=== PATIENT | male | born 1985 | race Caucasian/White ===

== ENCOUNTER 2017-12-01 12:02 | Emergency (ER) | payer OTHER ==
[2017-12-01 14:52] VITALS: BP 131/83
--- NOTE | 2017-12-01 15:07 | UC ---
FLU HPI - HPI Summary HPI Summary: 32 y/o female present to the urgent care c/o naal congestion, with green nasal discharge, TIRADO, productive cough, +PND for the past 2 weeks. Pt reports symptoms started w/ common cold symptoms. He has been taking Tylenol cold and flu OTC to alleviate symptoms. He had fever this morning. Pt denies chest pain, wheezing, [id number] pain, N/V/D - History of Current Complaint Chief Complaint: UCRespiratory Stated Complaint: FLU SYMPTOMS/RESPIRATORY Time Seen by Provider: 12/01/17 14:37 Hx Obtained From: Patient Onset/Duration: Gradual Onset, Lasting Weeks - 2 weeks, Worse Since - 2 days Severity Currently: Mild Severity Initially: Moderate Pain Intensity: 4 Pain Scale Used: 0-10 Numeric Associated Signs & Symptoms: Positive: Fever, Myalgia, Nasal Congestion, Headache - Risk Factors Influenza Risk Factors: Negative - Allergy/Home Medications Allergies/Adverse Reactions: Allergies Allergy/AdvReac Type Severity Reaction Status Date / Time No Known Allergies Allergy Verified 12/01/17 14:38 Home Medications: Home Medications Ibuprofen TAB* [Motrin TAB* 400 MG] 400 mg PO ONCE PRN 12/01/17 [History Confirmed 12/01/17] Tylenol Cold And Flu 2 tab PO TID PRN 12/01/17 [History] PMH/Surg Hx/FS Hx/Imm Hx Previously Healthy: Yes - Pt denies PMHX - Surgical History Surgical History: None - Family History Known Family History: Positive: Cardiac Disease, Hypertension Family History: Hodgekin's lymphoma - Social History Occupation: Employed Full-time Lives: With Family Alcohol Use: None Substance Use Type: None Smoking Status (MU): Never Smoked Tobacco Review of Systems Constitutional: Fever Skin: Negative Eyes: Negative ENT: Nasal Discharge, Sinus Congestion, Sinus Pain/Tenderness, Other - +PND Respiratory: Shortness Of Breath - at times, Cough Cardiovascular: Negative Gastrointestinal: Negative Genitourinary: Negative Motor: Negative Neurovascular: Negative Musculoskeletal: Negative Neurological: Headache Psychological: Negative Is Patient Immunocompromised?: No All Other Systems Reviewed And Are Negative: Yes Physical Exam Triage Information Reviewed: Yes Vital Signs: Initial Vital Signs Temp 98.1 F 12/01/17 14:45 Pulse 70 12/01/17 14:45 Resp 16 12/01/17 14:45 BP 131/83 12/01/17 14:45 Pulse Ox 100 12/01/17 14:45 - Additional Comments Vitals: reviewed General: Well developed, well-nourished patient with NAD. Head and face: Normocephalic and atraumatic, Positive tenderness over the frontal and maxillary sinuses.. Eyes: PERRLA, EOMI x 2. Normal conjunctiva. No eye discharge. ENT: Ears and TM with normal limits. Nose: with yellowish discharge and erythematous mucosa. Pharynx with erythema, no exudate. Neck: Supple, no JVD, no carotid bruits and no lymphadenopathy. Lungs: clear, no rales, no rhonchi, no wheezes. CVS: RRR, S1 and S2 present no murmurs or gallops appreciated. Abdomen: soft nontender with positive bowel sounds. Extremities: no edema noted. Neuro: WNL. Skin: warm and dry Flu Course/Dx - Course Course Of Treatment: 32 y/o female present to the urgent care c/o naal congestion, with green nasal discharge, TIRADO, productive cough, +PND for the past 2 weeks. Pt reports symptoms started w/ common cold symptoms. He has been taking Tylenol cold and flu OTC to alleviate symptoms. He had fever this morning. Pt denies chest pain, wheezing,abdominal pain, N/V/D. Hx obtained. Pt with sinusitis on examination. Pt with 2 weeks of symptoms getting worse. Pt Rx Augmenting PO and flonase nasal spray. Discharge instructions explained to Pt. Advised to Return to the clinic or PCP if symptoms do not improve.Pt understood and agreed with plan of care. - Differential Dx/Diagnosis Differential Diagnosis/HQI/PQRI: Bronchitis, Influenza, Upper Respiratory Infection, Other - pharyngitis, sinusitis Provider Diagnoses: 1- Acute bacterial sinusitis Discharge - Discharge Plan Condition: Stable Disposition: HOME Prescriptions: Amoxicillin/Clavulanate TAB* [Augmentin TAB 875*] 875 mg PO BID #20 tab Fluticasone NASAL SPRAY 50MCG* [Flonase NASAL SPRAY 50MCG*] 2 spray BOTH NARES DAILY #1 btl Patient Education Materials: Sinusitis (ED) Referrals: Nikki Augustin [Primary Care Provider] - If Needed Additional Instructions: 1- Please increase fluid intake and rest. take full course of antibiotic to avoid resistance 2-Use Flonase as directed to help drain fluid. Also buy saline drops to clear sinuses 3-Return to the clinic or PCP if symptoms do not improve for further management and treatment
== END 2017-12-01 15:23 | disposition home or self-care (01) ==
LOC: UCCORT 12:02
DX: J01.90 Acute sinusitis, unspecified (principal); B96.89 Other specified bacterial agents as the cause of diseases classified elsewhere
CPT/HCPCS: 99202; G0463